=== PATIENT | female | born 1980 | race Caucasian/White ===

== ENCOUNTER 2016-12-11 08:49 | Inpatient (IN) | payer BC ==
[~2016-12-11] VITALS: Ht 170.2 cm; Wt 147.2 kg
[~2016-12-11 08:49] MED LIST: AZOR 5/40 MG1 TABLET PO; DESYREL 150 MG150 MG PO; MAXZIDE 37.5 M1 EACH PO; MIRENA52 MG IY
[2016-12-11 12:35] VITALS: BP 127/67
[2016-12-11 13:01] LABS: POINT-OF-CARE METER ID UU14174212
[2016-12-11 18:15] VITALS: BP 137/76
[2016-12-11 18:55] LABS: POINT-OF-CARE METER ID UU14162508
[2016-12-11 19:53] VITALS: BP 119/57
[2016-12-11 23:34] VITALS: BP 140/68
[2016-12-12 00:21] LABS: POINT-OF-CARE METER ID UU14162508
[2016-12-12 03:23] VITALS: BP 125/66
[2016-12-12 05:53] LABS: POINT-OF-CARE METER ID UU14162508
[2016-12-12 07:31] VITALS: BP 120/63
[2016-12-12] MEDS ORDERED: HYDROCODON-ACE1 EAC7 PO (08:21)
== END 2016-12-12 10:17 | disposition home or self-care (01) | DRG 621 ==
LOC: 2SOUTH 08:49 → 2EAST 18:15
PROVIDERS: Surgery
PROC: 0DB64Z3 Excision of Stomach, Percutaneous Endoscopic Approach, Vertical (ICD-10-PCS; principal; 2016-12-11)
DX: E66.01 Morbid (severe) obesity due to excess calories (principal); I10 Essential (primary) hypertension; Z68.43 Body mass index [BMI] 50.0-59.9, adult
CPT/HCPCS: 80048; 82948; 83735; 84100; 85027; C9113; J0131; J0330; J0690; J1100; J1170; J1644; J1650; J1815; J2250; J2270; J2405; J2710; J2765; J3010; J3480; J7120; S0020